=== PATIENT | female | born 1970 | race Caucasian/White ===

== ENCOUNTER 2024-03-07 11:30 | Day surgery (SDC) | payer BC, SELFPAY ==
[2024-03-07] MEDS: fentaNYL CIT INJ 50 mCg/ML AMP 2ML (ASD USE ONLY) IV (01:58)
[2024-03-07 12:02] LABS: HCG Qualitative,Urine Negative
[2024-03-07 12:10] VITALS: BP 121/87; PULSE 74; RESP 9; TEMP 36.7; O2SAT 98; BMI 33.5
[2024-03-07 12:50] VITALS: BP 134/83; PULSE 77; RESP 12; O2SAT 100
[2024-03-07] MEDS: DiphenhydrAMINE INJ 50 MG/ML VIAL 25 MG IV (12:53)
[2024-03-07 12:55] VITALS: BP 140/89; PULSE 95; RESP 15; O2SAT 99
[2024-03-07] MEDS: MIDAZOLAM INJ 1 MG/ML VIAL 2 ML (ASD USE ONLY) 2 MG IV (12:58)
[2024-03-07 13:00] VITALS: BP 167/96; PULSE 97; RESP 19; O2SAT 97
[2024-03-07 13:05] VITALS: BP 131/76; PULSE 99; RESP 17; O2SAT 100
[2024-03-07 13:11] VITALS: BP 125/84; PULSE 80; RESP 17; TEMP 36.7; O2SAT 98
--- NOTE | 2024-03-07 14:25 | SUR.PHASEII ---
Addendum entered by Sandrita Mason RN 03/07/24 14:44: 1405: Note for 1305 time entered in error. Should state 1405. Original Note: 1311: Pt received for recovery. Report from Jennifer STRATTON. Pt sleepy. Easily aroused with eye opening. Resp even, unlabored. VS stable. No c/o pain. 1340: Pt more awake, alert. Sitting up tolerating po fluids with no difficulty swallowing and no n/v. 1305: Pt fully awake, oriented x3. Pt assisted to restroom. Ambulation steady. Pt and friend stated understanding of discharge instructions. Pt discharged from [facility] in stable condition.
== END 2024-03-07 14:05 | disposition home or self-care (01) ==
PROVIDERS: PCP Internal Medicine; Referring Provider Specialist; Visit Provider Specialist
PROC: (CPT 43239; principal; 2024-03-07 13:00)
DX: K20.90 Esophagitis, unspecified without bleeding (principal); K29.70 Gastritis, unspecified, without bleeding; K25.9 Gastric ulcer, unspecified as acute or chronic, without hemorrhage or perforation
CPT/HCPCS: 43239; 81025; A4649; C1769; J1200; J2250; J3010

== ENCOUNTER → 2024-04-15 | Outpatient (CLI) | payer SELFPAY ==
--- NOTE | 2024-04-15 08:45 | XR_ITS ---
Examination: Abdomen sonogram, Limited Date and time of exam: April 15, 2024 0901 hours INDICATIONS: Intermittent abdominal pain beginning several years ago Technique: Real-time mejia scale transabdominal sonographic images of the upper abdomen obtained. Findings: Normal gallbladder Normal common bile duct 0.2 cm Pancreatic head 1.8 cm Liver 13.9 cm fatty infiltration no focal liver lesions Normal hepatopedal portal venous flow Patent IVC IMPRESSION: Normal gallbladder Fatty liver
== END | disposition home or self-care (01) ==
PROVIDERS: PCP Internal Medicine; Referring Provider Specialist; Visit Provider Specialist
DX: K76.0 Fatty (change of) liver, not elsewhere classified (principal)
CPT/HCPCS: 76705

== ENCOUNTER → 2024-07-01 | Outpatient (CLI) | payer BC, SELFPAY ==
[2024-07-01 07:49] LABS: Collection Type, Urine Clean Catch
[2024-07-01 08:33] LABS: Basophils % (Auto) 1 % (0-2.5); Eosinophils # (Auto) 0.2 Thou/mm3 (0.0-0.5); Eosinophils % (Auto) 4 % (0-10); Hematocrit 36.4 % (36.0-46.0); Hemoglobin 12.4 g/dL (12.0-16.0); Immature Granulocytes % (Auto) 0 % (0-0); Lymphocytes # (Auto) 1.7 Thou/mm3 (1.0-4.8); Lymphocytes % (Auto) 34 % (10-50); Mean Corpuscular HGB Conc 34.1 g/dl (31.0-37.0); Mean Corpuscular Hemoglobin 31.3 pg (25.0-35.0); Mean Corpuscular Volume 92 fL (80-100); Monocytes # (Auto) 0.4 Thou/mm3 (0.0-0.8); Monocytes % (Auto) 8 % (0-12); Neutrophils # (Auto) 2.6 Thou/mm3 (1.8-7.7); Neutrophils % (Auto) 54 % (37-80); Nucleated Red Blood Cell % 0 /100 WBC (0); Platelet Count 260 Thou/mm3 (140-440); RDW Standard Deviation 44.1 fL (36.4-46.3); Red Blood Count 3.96 Miln/mm3 (4.00-5.20); White Blood Count 4.8 Thou/mm3 (3.6-11.0)
[2024-07-01 08:42] LABS: Glucose Estimated Average 97 mg/dL (80-131)
[2024-07-01 08:49] LABS: Alanine Aminotransferase 17 U/L (10-49); Albumin, Serum 4.2 gm/dL (3.5-5.0); Albumin/Globulin Ratio 2.1 (1.2-2.2); Alkaline Phosphatase 49 U/L (46-116); Anion Gap 7 (7-16); Aspartate Amino Transferase 19 U/L (0-34); BUN/Creatinine Ratio 17 Ratio (12-20); Bilirubin,Total 0.4 mg/dL (0.3-1.2); Blood Urea Nitrogen 17 mg/dL (9-23); Calcium 9.1 mg/dL (8.3-10.6); Calcium (Corrected) 9.1 mg/dL (8.5-10.1); Carbon Dioxide 27.2 mMol/L (20.0-31.0); Cardiac Risk Estimate 2.4 RATIO (3.7-5.6); Chloride 105 mMol/L (98-107); Cholesterol 146 mg/dL (132-200); Glucose 100 mg/dL (74-106); HDL Cholesterol 61 mg/dL (40-60); LDL Cholesterol,Calculated 77 mg/dL (0-130); Osmolality,Calculated 279 (275-295); Potassium 4.4 mMol/L (3.4-5.1); Sodium 139 mMol/L (136-145); Thyroid Stimulating Hormone 2.25 uIU/mL (0.55-4.78); Total Protein 6.2 gm/dL (5.7-8.2); Triglycerides 41 mg/dL (30-150); Uric Acid 3.3 mg/dL (3.1-7.8); eGFR > 60 See Note
[2024-07-01 09:02] LABS: Bacteria,Urine Rare; Bilirubin,Urine 1+ (Negative); Blood,Urine Negative (Negative); Calcium Oxalate Crystals,Urine 3+; Color,Urine Yellow (Lt Yel-Yel); Glucose, Urine Negative (Negative); Ketones,Urine Negative (Negative); Leukocyte Esterase,Urine Negative (Negative); Nitrite,Urine Negative (Negative); Protein,Urine Trace (Neg - Trace); RBC,Urine 9 /hpf (0-3); Specific Gravity,Urine 1.041 (1.001-1.035); Squamous Epithelial Cell,Urine 2 /hpf (0-5); WBC,Urine 4 /hpf (0-5)
[2024-07-01 09:04] LABS: Clarity,Urine Cloudy (Clear/Hazy)
[2024-07-01 14:04] LABS: Vitamin D 25 Hydroxy Total 58.3 ng/mL (7.3-40.2)
[2024-07-01 15:56] LABS: Vitamin B12 498 pg/mL (211-911)
== END | disposition home or self-care (01) ==
PROVIDERS: PCP Internal Medicine; Referring Provider Internal Medicine; Visit Provider Internal Medicine
DX: Z00.00 Encounter for general adult medical examination without abnormal findings (principal)
CPT/HCPCS: 36415; 80053; 80061; 81001; 82306; 82607; 83036; 84443; 84550; 85025

== ENCOUNTER 2024-09-14 10:45 | Day surgery (SDC) | payer BC, SELFPAY ==
[2024-09-14] VITALS (11 sets, daily range): BP systolic 112–170; BP diastolic 68–114; PULSE 63–105; RESP 13–20; TEMP 36.4–36.8; O2SAT 96–100; BMI 30.6
[2024-09-14 11:25] LABS: HCG Qualitative,Urine Negative
[2024-09-14] MEDS: DiphenhydrAMINE INJ 50 MG/ML VIAL 25 MG IVP (12:20)
[2024-09-14] MEDS: MIDAZOLAM INJ 1 MG/ML VIAL 2 ML (ASD USE ONLY) 2 MG IVP (12:35)
[2024-09-14] MEDS: fentaNYL CIT INJ 50 mCg/ML AMP 2ML (ASD USE ONLY) IVP (12:35)
[2024-09-14] MEDS: SODIUM CHLORIDE 0.9% 500 ML 500 ML 20 ML IV (12:41)
--- NOTE | 2024-09-14 14:04 | SUR.PHASEII ---
1315 Pt more awake and alert. Denies pain, N/V or difficulty swallowing. Abd remains soft. No mouth bleeding seen. Elaina PO fluids. 1337 Pt assessment unchanged. No complaints. Amb with steady gait. Able to dress self. Pt and friend given dc instructions. Both state understanding. Pt meets dc criteria-to home.
== END 2024-09-14 13:37 | disposition home or self-care (01) ==
PROVIDERS: PCP Internal Medicine; Referring Provider Specialist; Visit Provider Specialist
PROC: (CPT 43239; principal; 2024-09-14 11:30)
DX: K20.90 Esophagitis, unspecified without bleeding (principal); K22.2 Esophageal obstruction; K25.9 Gastric ulcer, unspecified as acute or chronic, without hemorrhage or perforation; K29.50 Unspecified chronic gastritis without bleeding; K31.89 Other diseases of stomach and duodenum; K29.60 Other gastritis without bleeding
CPT/HCPCS: 43248; 43239; 81025; C1769; J1200; J2250; J3010; J7040

== ENCOUNTER → 2024-12-05 | Outpatient (CLI) | payer BC, SELFPAY ==
[2024-12-05 08:39] LABS: Basophils # (Auto) 0.0 Thou/mm3 (0.0-0.2); Basophils % (Auto) 1 % (0-2.5); Eosinophils # (Auto) 0.2 Thou/mm3 (0.0-0.5); Eosinophils % (Auto) 4 % (0-10); Hematocrit 37.6 % (36.0-46.0); Hemoglobin 12.6 g/dL (12.0-16.0); Immature Granulocytes Auto 0.01 Thou/mm3 (0.00-0.00); Lymphocytes # (Auto) 1.6 Thou/mm3 (1.0-4.8); Lymphocytes % (Auto) 37 % (10-50); Mean Corpuscular HGB Conc 33.5 g/dl (31.0-37.0); Mean Corpuscular Hemoglobin 31.8 pg (25.0-35.0); Mean Corpuscular Volume 95 fL (80-100); Monocytes # (Auto) 0.4 Thou/mm3 (0.0-0.8); Monocytes % (Auto) 10 % (0-12); Neutrophils # (Auto) 2.1 Thou/mm3 (1.8-7.7); Neutrophils % (Auto) 49 % (37-80); Nucleated Red Blood Cell # 0.00 Thou/mm3 (0.00-0.00); Nucleated Red Blood Cell % 0 /100 WBC (0); Platelet Count 253 Thou/mm3 (140-440); RDW Standard Deviation 46.4 fL (36.4-46.3); Red Blood Count 3.96 Miln/mm3 (4.00-5.20); White Blood Count 4.2 Thou/mm3 (3.6-11.0)
[2024-12-05 08:56] LABS: Alanine Aminotransferase < 7 U/L (10-49); Albumin, Serum 4.2 gm/dL (3.5-5.0); Anion Gap 10 (7-16); Aspartate Amino Transferase 21 U/L (0-34); BUN/Creatinine Ratio 10 Ratio (12-20); Bilirubin,Total 0.4 mg/dL (0.3-1.2); Blood Urea Nitrogen 10 mg/dL (9-23); Calcium 9.6 mg/dL (8.3-10.6); Calcium (Corrected) 9.6 mg/dL (8.5-10.1); Carbon Dioxide 26.6 mMol/L (20.0-31.0); Chloride 105 mMol/L (98-107); Creatinine (Component) 1.0 mg/dL (0.6-1.3); Globulin 1.8 gm/dL (2.3-3.5); Glucose 89 mg/dL (74-106); Osmolality,Calculated 281 (275-295); Potassium 4.3 mMol/L (3.4-5.1); Sodium 142 mMol/L (136-145); Total Protein 6.0 gm/dL (5.7-8.2); eGFR > 60 See Note
[2024-12-05 08:57] LABS: Albumin/Globulin Ratio 2.3 (1.2-2.2); Alkaline Phosphatase 38 U/L (46-116); Cardiac Risk Estimate 3.1 RATIO (3.7-5.6); Cholesterol 132 mg/dL (132-200); HDL Cholesterol 43 mg/dL (40-60); LDL Cholesterol,Calculated 63 mg/dL (0-130); Triglycerides 130 mg/dL (30-150)
== END | disposition home or self-care (01) ==
LOC: COPL 07:08
PROVIDERS: PCP Internal Medicine; Referring Provider Specialist; Visit Provider Specialist
DX: E78.5 Hyperlipidemia, unspecified (principal)
CPT/HCPCS: 36415; 80053; 80061; 85025